=== PATIENT | male | born 1975 ===

== ENCOUNTER 2018-10-08 16:58 | Emergency (ER) | payer BC ==
[2018-10-08 17:05] VITALS: TEMP 98.5
[2018-10-08 17:53] LABS: BASO # 0.1 K/uL (0.0-0.2); BASO % 0.8 % (0.0-2.0); EOS # 0.1 K/uL (0.0-0.7); EOS % 1.2 % (0.0-4.0); HEMOGLOBIN 13.4 g/dL (12.0-18.0); LYMPH # 2.4 K/uL (1.0-4.3); LYMPH % 31.5 % (20.0-40.0); MEAN CELL VOLUME 91.9 fl (80.0-94.0); MEAN CORPUSCULAR HEMOGLOBIN 30.3 pg (27.0-31.0); MEAN PLATELET VOLUME 7.9 fl (7.2-11.7); MONO # 0.5 K/uL (0.0-0.8); MONO % 6.4 % (0.0-10.0); NEUT # 4.6 K/uL (1.8-7.0); NEUT % 60.1 % (50.0-75.0); NRBC % 0.1 % (0.0-0.0); RBC 4.43 Mil/uL (4.40-5.90); RED CELL DISTRIBUTION WIDTH 14.2 % (11.5-14.5); WHITE BLOOD COUNT 7.7 K/uL (4.8-10.8)
[2018-10-08 17:58] LABS: PROTHROMBIN TIME 11.6 Seconds (9.8-13.1)
[2018-10-08 18:01] LABS: PARTIAL THROMBOPLASTIN TIME 33.6 Seconds (25.6-37.1)
[2018-10-08 18:11] LABS: ALB/GLOB RATIO 1.2 (1.0-2.1); ALBUMIN 4.6 g/dL (3.5-5.0); ALT/SGPT 30 U/L (21-72); AST/SGOT 47 U/L (17-59); BLOOD UREA NITROGEN 21 mg/dl (9-20); CALCIUM 9.6 mg/dL (8.4-10.2); GFR NON-AFRICAN AMERICAN > 60
--- NOTE | 2018-10-08 18:57 | ED PDOC ---
HPI: General Adult Time Seen by Provider: 10/08/18 17:08 Chief Complaint (Nursing): Weakness/Neurological Deficit Chief Complaint (Provider): Left Sided Neck Numbness History Per: Patient History/Exam Limitations: no limitations Onset/Duration Of Symptoms: Hrs (x5) Current Symptoms Are (Timing): Still Present Additional Complaint(s): 43 y/o male with no significant PMHx presents to the ED for evaluation of left sided neck numbness, onset 5 hours prior to arrival. Patient reports at approximately 12 o'clock this afternoon, he developed numbness near the bottom left side of his neck. Patient states pain radiated upwards through the back of the ear, involving the ear and scalp. Patient additionally reports of neck stiffness all day as well as mild stiffness in the left shoulder and arm. Of note, patient reports of being treated for a bad dental injection in the left side of his jaw a month and a half ago that resolved completely. Denies weakness, numbness in the extremities, headache, motor weakness, blurry vision, difficulty with speech and injury. PMD: Willem Connelly (However, patient states he has not seen him in over one year.) Past Medical History Reviewed: Historical Data, Nursing Documentation, Vital Signs Vital Signs: Last Vital Signs Temp 98.5 F 10/08/18 17:03 Pulse 85 10/08/18 17:03 Resp 16 10/08/18 17:03 BP 168/96 H 10/08/18 17:03 Pulse Ox 98 10/08/18 17:03 - Medical History PMH: No Chronic Diseases - Surgical History Surgical History: No Surg Hx - Family History Family History: States: Stroke, CAD, Hypertension - Social History Current smoker - smoking cessation education provided: Yes (Cigars occasionally) Alcohol: Occasional - Home Medications Home Medications: Ambulatory Orders Medication Instructions Recorded Ibuprofen [Motrin Tab] 600 mg PO Q8 PRN #60 tab 10/08/18 - Allergies Allergies/Adverse Reactions: Allergies Allergy/AdvReac Type Severity Reaction Status Date / Time No Known Allergies Allergy Verified 10/08/18 17:03 Review of Systems ROS Statement: Except As Marked, All Systems Reviewed And Found Negative (as per HPI) Eyes: Negative for: Vision Change Musculoskeletal: Positive for: Neck Pain (Left sided neck numbness and stiffness) Neurological: Negative for: Weakness, Numbness, Change in Speech, Headache Physical Exam - Reviewed Nursing Documentation Reviewed: Yes Vital Signs Reviewed: Yes - Physical Exam Appears: Positive for: Well, No Acute Distress Head Exam: Positive for: ATRAUMATIC, NORMOCEPHALIC Skin: Positive for: Warm, Dry Eye Exam: Positive for: EOMI, PERRL ENT: Positive for: Pharynx Is (clear) Neck: Positive for: Painless ROM, Supple Cardiovascular/Chest: Positive for: Regular Rate, Rhythm. Negative for: Murmur Respiratory: Positive for: Normal Breath Sounds. Negative for: Respiratory Distress Gastrointestinal/Abdominal: Positive for: Soft. Negative for: Tenderness Back: Positive for: Normal Inspection. Negative for: Decreased ROM Extremity: Positive for: Other (5/5 strength in all extremities) Lymphatic: Negative for: Adenopathy Neurologic/Psych: Positive for: Alert, Oriented (x3), Motor/Sensory Deficits (Subjective decreased light touch along the left posterior neck, postauricular area and left ear.), Other (Normal Speech). Negative for: Facial Droop - Laboratory Results Result Diagrams: 10/08/18 17:49 10/08/18 17:49 - ECG O2 Sat by Pulse Oximetry: 98 (RA) Pulse Ox Interpretation: Normal Medical Decision Making Medical Decision Making: Time: 172 Impression: Paresthesia of the left neck Differentials include but not limited to cervical radiculopathy, electrolyte abnormality, anemia, muscle strain and intracranial mass Plan: -- Type and Screen -- CT Cervical Spine w/o Contrast -- CT Head w/o Contrast -- EKG -- CMP -- Magnesium -- Phosphorus -- CBC with Differentials -- PTT -- Prothrombin Time -- IV Insertion Time: 1916 CT CERVICAL SPINE FINDINGS: ALIGNMENT: Bony alignment is anatomic. DEGENERATIVE CHANGES: There is degenerative disc disease with disc space narrowing at the C5-C6 level. SOFT TISSUES: The prevertebral soft tissues are within normal limits. BONES: No acute fracture or aggressive appearing osseous lesion. Hypertrophic changes involving the vertebral bodies C5-C6 level. IMPRESSION: Hypertrophic and degenerative changes mainly at the C5-C6 level with chronic disc disease at this level. Clinical correlation advised. Electronically signed on Oct 08, 2018 7:17:50 PM EST by: Bipin Ballard M.D., Certified by [employer]BR, Diagnostic Radiology Accession No. : [id number] Patient Name / ID : EAN THOMAS / [id number] Exam Date : 10/08/2018 18:43:40 ( Approved ) Study Comment : Sex / Age : M / 43Y Creator : Deidre Carter MD Dictator : Deidre Carter MD Director Private [employer] Agency : [employer]ician : Deidre Carter MD Approver2 : Report Date : 10/08/2018 19:00:00 My Comment : Date of service: 10/08/2018 PROCEDURE: CT HEAD WITHOUT CONTRAST. HISTORY: LEFT sided numbness face/neck COMPARISON: None available. TECHNIQUE: Axial computed tomography images were obtained through the head/brain without intravenous contrast. Radiation dose: Total exam DLP = 862.64 mGy-cm. This CT exam was performed using one or more of the following dose reduction techniques: Automated exposure control, adjustment of the mA and/or kV according to patient size, and/or use of iterative reconstruction technique. FINDINGS: HEMORRHAGE: No intracranial hemorrhage. BRAIN: No mass effect or edema. The randall-white matter differentiation appears intact. Please note that MRI with diffusion imaging is more sensitive in the detection of acute ischemic event. VENTRICLES: No hydrocephalus. CALVARIUM: Unremarkable. PARANASAL SINUSES: Unremarkable as visualized. No significant inflammatory changes. MASTOID AIR CELLS: Unremarkable as visualized. No inflammatory changes. OTHER FINDINGS: None. IMPRESSION: No acute intracranial pathology identified. Labs unremarkable DW pt findings and plan of care. Findings suggests radiculopathy and not central lesion. Stable for discharge. NSAIDs, rest, f/u pmd. Scribe Attestation: Documented by Harriet Velasquez, acting as a scribe for Tanya Juarez MD. Provider Scribe Attestation: All medical record entries made by the Scribe were at my direction and personally dictated by me. I have reviewed the chart and agree that the record accurately reflects my personal performance of the history, physical exam, medical decision making, and the department course for this patient. I have also personally directed, reviewed, and agree with the discharge instructions and disposition. Disposition - Clinical Impression Clinical Impression: Cervical radiculopathy, Degenerative disc disease, cervical - Disposition Referrals: Willem Connelly MD [Family Provider] - 10/09/18 Disposition: Routine/Home Disposition Time: 20:00 Condition: STABLE Additional Instructions: Take ibuprofen around the clock for a week (with food) and avoid any heavy lifting or strenuous activity Followup with your doctor within a week for reevaluation and further management. Prescriptions: Ibuprofen [Motrin Tab] 600 mg PO Q8 PRN #60 tab PRN Reason: Pain, Moderate (4-7) Instructions: Radiculopathy (DC), Degenerative Disc Disease (DC) Forms: [facility] ED School/Work Excuse
--- NOTE | 2018-10-08 19:03 | CT ---
Date of service: 10/08/2018 PROCEDURE: CT HEAD WITHOUT CONTRAST. HISTORY: LEFT sided numbness face/neck COMPARISON: None available. TECHNIQUE: Axial computed tomography images were obtained through the head/brain without intravenous contrast. Radiation dose: Total exam DLP = 862.64 mGy-cm. This CT exam was performed using one or more of the following dose reduction techniques: Automated exposure control, adjustment of the mA and/or kV according to patient size, and/or use of iterative reconstruction technique. FINDINGS: HEMORRHAGE: No intracranial hemorrhage. BRAIN: No mass effect or edema. The randlal-white matter differentiation appears intact. Please note that MRI with diffusion imaging is more sensitive in the detection of acute ischemic event. VENTRICLES: No hydrocephalus. CALVARIUM: Unremarkable. PARANASAL SINUSES: Unremarkable as visualized. No significant inflammatory changes. MASTOID AIR CELLS: Unremarkable as visualized. No inflammatory changes. OTHER FINDINGS: None. IMPRESSION: No acute intracranial pathology identified.
[2018-10-08 19:52] VITALS: BP 117/69; PULSE 63; RESP 18
[2018-10-08 20:19] VITALS: O2SAT 98
--- NOTE | 2018-10-09 06:06 | CARD ---
APPROVED REPORT Date of service: 10/08/2018 EKG Measurement Heart [id number] <Conclusion> Normal sinus rhythm Minimal voltage criteria for LVH, may be normal variant Borderline ECG
--- NOTE | 2018-10-09 09:48 | CT ---
Date of service: 10/08/2018 PROCEDURE: CT Cervical Spine without contrast HISTORY: LEFT sided numbness face/neck COMPARISON: None available. TECHNIQUE: Axial computed tomography images were obtained of the cervical spine without the use of intravenous contrast. Coronal and sagittal reformatted images were created and reviewed. Radiation dose: Total exam DLP = 380.75 mGy-cm. This CT exam was performed using one or more of the following dose reduction techniques: Automated exposure control, adjustment of the mA and/or kV according to patient size, and/or use of iterative reconstruction technique. FINDINGS: VERTEBRAE: Straightening of the cervical curvature appreciate without fracture or spondylolisthesis. DISCS/SPINAL CANAL/NEURAL FORAMINA: Mild right C3-4 5 and bilateral C5-6 degenerative neural foraminal stenosis caused by facet arthropathy and uncovertebral joint osteophyte development. No severe central canal or neural foraminal stenosis appreciable. Discs heights are grossly preserved. PARASPINAL SOFT TISSUES: Unremarkable. OTHER FINDINGS: None. IMPRESSION: Straightened cervical curvature without fracture or spondylolisthesis evident. No destructive bony lesion appreciable throughout. Mild degenerative neural foraminal stenosis right C5 and bilateral C6 root foramina. Further characterization can provided by MRI if clinically warranted. No gross intervertebral disc herniation appreciable.
== END 2018-10-08 20:11 | disposition home or self-care (01) ==
LOC: H.ER 16:58
DX: M54.12 Radiculopathy, cervical region (principal); M50.30 Other cervical disc degeneration, unspecified cervical region

== ENCOUNTER 2019-01-06 17:04 | Emergency (ER) | payer BC ==
[2019-01-06 17:36] VITALS: BP 144/83; PULSE 77; RESP 16; TEMP 98.5; O2SAT 99
[2019-01-06] MEDS ORDERED: Tdap Vaccine 0.5 ml Vial (10-64 yrs) IM ONE (19:02)
--- NOTE | 2019-01-06 19:14 | ED PDOC ---
Upper Extremity Pain/Injury Time Seen by Provider: 01/06/19 18:18 Chief Complaint (Nursing): Upper Extremity Problem/Injury Chief Complaint (Provider): Right Hand Wound History Per: Patient History/Exam Limitations: no limitations Onset/Duration Of Symptoms: Days (2-3 days ago) Current Symptoms Are (Timing): Still Present Additional Complaint(s): 43 year old male presents to the ED for evaluation of a wound sustained to the base of his right pinky finger over the weekend (2-3 days ago). Patient reports that he got the puncture wound while working on his truck, and initially cleaned it with water and rubbing alcohol, but did not seek medical attention immediately. He presents today complaining of experiencing pain to the wound site. Did not take any medications. Denies other complaints and loss of sensation. Right hand dominant Tetanus not up to date PMD: Willem Connelly Past Medical History Reviewed: Historical Data, Nursing Documentation, Vital Signs Vital Signs: Last Vital Signs Temp 98.5 F 01/06/19 17:31 Pulse 77 01/06/19 17:31 Resp 16 01/06/19 17:31 BP 144/83 01/06/19 17:31 Pulse Ox 99 01/06/19 17:31 - Medical History PMH: No Chronic Diseases - Surgical History Surgical History: No Surg Hx - Family History Family History: States: Stroke, CAD, Hypertension - Home Medications Home Medications: Ambulatory Orders Medication Instructions Recorded Ibuprofen [Motrin Tab] 600 mg PO Q8 PRN #60 tab 10/08/18 Cephalexin [cephalexin] 500 mg PO TID #21 cap 01/06/19 Naproxen 500 mg PO BID PRN #20 tab 01/06/19 - Allergies Allergies/Adverse Reactions: Allergies Allergy/AdvReac Type Severity Reaction Status Date / Time No Known Allergies Allergy Verified 01/06/19 17:31 Review of Systems ROS Statement: Except As Marked, All Systems Reviewed And Found Negative Musculoskeletal: Positive for: Other (laceration to base of right pinky finger with localized pain) Neurological: Negative for: Other (loss of sensation) Physical Exam - Reviewed Nursing Documentation Reviewed: Yes Vital Signs Reviewed: Yes - Physical Exam Comments: GENERAL APPEARANCE: Patient is awake, alert, oriented x 3, in no acute distress. Resting comfortably. SKIN: Warm, dry; (-) cyanosis. CHEST AND RESPIRATORY: (-) rales, (-) rhonchi, (-) wheezes; breath sounds equal bilaterally. Respirations even and nonlabored. HEART AND CARDIOVASCULAR: (-) irregularity NECK: Supple, FROM ENT: Mucus membranes moist. Airway patent, (-) stridor. RIGHT UPPER EXTREMITY: (+) .5cm superficial healing horizontal linear laceration to palmar proximal right 5th digit extending to web space with faint erythema to wound margins, (+) localized pain, (-) edema, (-) pus drainage, (-) warmth. (+) full ROM all digits, (-) deformity. (-) distal neurovascular deficit. (+) sensation and capillary refill intact. Remainder of upper extremity and digits: (-) tenderness. NEURO AND PSYCH: Mental status as above. Gait: steady. Speech: clear. (-) facial asymmetry - ECG O2 Sat by Pulse Oximetry: 99 (RA) Pulse Ox Interpretation: Normal Medical Decision Making Medical Decision Making: Time: 1829 Initial Impression: wound check, possible wound infection Initial Plan: --Tetanus booster --Keflex 500mg PO --Ibuprofen 800mg PO 1924 On re-evaluation, patient reports improvement of symptoms. On exam, patient remains AAOx3, in no acute distress. Vitals stable. Lab/Diagnostic results d/w the patient in great detail. Diagnosis of visit for wound check, possible wound infection d/w the patient. Based on history, exam and diagnostic results, plan will be for outpatient follow up with PMD/hand. Patient instructed to follow-up with pmd / referral provided / the clinic in 1- 2 days without fail. Advised to take medication as prescribed. Return to the emergency room at any time for any new or worsening symptoms. Patient states he fully agrees with and understands discharge instructions. States that he agrees with the plan and disposition. Verbalized and repeated discharge instructions and plan. I have given the patient opportunity to ask any additional questions. Scribe Attestation: Documented by Ivania Finn, acting as a scribe for Radha Vicente PA-C Provider Scribe Attestation: All medical record entries made by the Scribe were at my direction and personally dictated by me. I have reviewed the chart and agree that the record accurately reflects my personal performance of the history, physical exam, medical decision making, and the department course for this patient. I have also personally directed, reviewed, and agree with the discharge instructions and disposition. Disposition - Clinical Impression Clinical Impression: Laceration of finger, Wound infection - Patient ED Disposition Is Patient to be Admitted: No Counseled Patient/Family Regarding: Studies Performed, Diagnosis, Need For Followup, Rx Given - Disposition Referrals: Lauren Rodriguez MD [Staff Provider] - primary, doctor [Other] Disposition: Routine/Home Disposition Time: 19:25 Condition: STABLE Additional Instructions: The emergency medical care you received today was directed at your acute symptoms. If you were prescribed any medication, please fill it and take as d irected. It may take several days for your symptoms to resolve. Return to the Emergency Department if your symptoms worsen, do not improve, or if you have any other problems. Please contact your doctor in 2 days for re-evaluation and follow up / or call one of the physicians/clinics you have been referred to that are listed on the Patient Visit Information form that is included in your discharge packet. Bring any paperwork you were given at discharge with you along with any medications you are taking to your follow up visit. Our treatment cannot replace ongoing medical care by a primary care provider (PCP) outside of the emergency department. Prescriptions: Cephalexin [cephalexin] 500 mg PO TID #21 cap Naproxen 500 mg PO BID PRN #20 tab PRN Reason: Pain, Moderate (4-7) Instructions: Wound Care, Common Finger Injuries (DC), Laceration Infection Forms: [employer] (Bulgarian) Print Language: DANISH - POA Present On Arrival: None
[2019-01-06] MEDS: Tdap Vaccine 0.5 ml Vial (10-64 yrs) IM ONE (19:21)
== END 2019-01-06 19:47 | disposition home or self-care (01) ==
LOC: H.ER 17:04
DX: L08.9 Local infection of the skin and subcutaneous tissue, unspecified (principal)